=== PATIENT | female | born 1960 | race Caucasian/White ===

== ENCOUNTER 2020-08-15 09:59 | Emergency (ER) | payer OTHER, MEDICAID ==
[~2020-08-15] VITALS: Ht 160 cm; Wt 74.8 kg
[2020-08-15 10:10] VITALS: Ht 160 cm; Wt 74.8 kg
[2020-08-15 13:47] VITALS: BP 139/86
== END 2020-08-15 13:52 | disposition left against medical advice (07) ==
LOC: ED 09:59
DX: I48.0 Paroxysmal atrial fibrillation (principal); R55 Syncope and collapse; I10 Essential (primary) hypertension; J44.9 Chronic obstructive pulmonary disease, unspecified; F20.0 Paranoid schizophrenia; G89.29 Other chronic pain; F10.10 Alcohol abuse, uncomplicated; F15.10 Other stimulant abuse, uncomplicated; F14.10 Cocaine abuse, uncomplicated; F12.10 Cannabis abuse, uncomplicated; Z20.828 Contact with and (suspected) exposure to other viral communicable diseases; Z59.0 Homelessness; Z98.890 Other specified postprocedural states; Z88.8 Allergy status to other drugs, medicaments and biological substances
CPT/HCPCS: 36600; 83880; 85378; 87804; J3490; Q0092

== ENCOUNTER 2020-08-18 09:18 | Emergency (ER) | payer OTHER, MEDICAID ==
[~2020-08-18] VITALS: Ht 165.1 cm; Wt 68.0 kg
[2020-08-18 09:20] VITALS: Ht 165.1 cm; Wt 68.0 kg
[2020-08-18 10:40] LABS: CALCIUM 8.7 mg/dL (8.5-10.1); CHLORIDE SERUM 106 mmol/L (98-107); CREATININE SERUM 0.8 mg/dL (0.6-1.0); GFR1 > 60 mL/min; GLUCOSE SERUM 102 mg/dL (74-106); POTASSIUM SERUM 3.4 mmol/L (3.5-5.1); SODIUM SERUM 139 mmol/L (136-145)
[2020-08-18 10:45] LABS: ALBUMIN 3.6 g/dL (3.4-5.0); ALKALINE PHOSPHATASE 78 U/L (46-116); ALT/SGPT 53 U/L (14-59); AST/SGOT 22 U/L (15-37); BILIRUBIN TOTAL 0.2 mg/dL (0.20-1.00); TOTAL PROTEIN, SERUM 6.3 g/dL (6.4-8.2)
[2020-08-18 11:36] LABS: BASOPHIL % 0.8 % (0-2); PLATELET COUNT 279 x10^3mcL (130-400); RED CELL DISTRIBUTION WIDTH 13.1 % (11.5-14.5)
[2020-08-18 13:15] VITALS: BP 124/75
== END 2020-08-18 13:15 ==
LOC: ED 09:18
PROVIDERS: Emergency Medicine
DX: E87.6 Hypokalemia (principal); R53.1 Weakness; R00.2 Palpitations; J44.9 Chronic obstructive pulmonary disease, unspecified; I10 Essential (primary) hypertension; Z59.0 Homelessness; Z98.890 Other specified postprocedural states; Z88.8 Allergy status to other drugs, medicaments and biological substances